=== PATIENT | male | born 1995 | race Caucasian/White ===

== ENCOUNTER → 2018-01-22 | Outpatient (CLI) | payer OTHER ==
[~2018-01-22] MED LIST: AMPH1TAB PO; NAPR-1169 PO; PANT40TA PO; RANI150T3 PO
--- NOTE | 2018-01-22 14:31 | DIAGNOSTIC IMAGING REPORT ---
CT OF THE ABDOMEN AND PELVIS WITH CONTRAST CLINICAL HISTORY: Left flank pain. COMPARISON STUDY: None. TECHNIQUE: Following IV administration of 92 mL of Optiray-320, axial images of the abdomen and pelvis were obtained from the lung bases to the proximal femurs. Images were reviewed in the axial, sagittal, and coronal planes. IV contrast was administered without complication. A dose lowering technique was utilized adhering to the principles of ALARA. CT DOSE: 266.36 mGy.cm FINDINGS: Lung bases are clear. The liver, spleen, adrenal glands, kidneys and pancreas are normal. There is no biliary or pancreatic ductal dilatation. There is no peripancreatic or pericholecystic infiltration. There is no hydronephrosis or hydroureter. No urinary calculi are identified. There is trace fluid within the pelvis, a nonspecific finding. There is no lymphadenopathy. There is no abscess. No suspicious osseous lesion is present. No groin hernia is identified. IMPRESSION: 1. Trace fluid within the pelvis, a nonspecific finding. 2. Otherwise, unremarkable CT of the abdomen or pelvis. No bowel obstruction. No groin hernia. No urinary calculus. Electronically signed by: Jordi Fontana M.D. 01/22/2018 2:30 PM Dictated Date/Time: 01/22/2018 2:18 PM
== END | disposition home or self-care (01) ==
LOC: C.CTS 13:52
PROVIDERS: ATTEND Physician Assistant
DX: R10.9 Unspecified abdominal pain (principal)

== ENCOUNTER 2018-01-25 04:33 | Emergency (ER) | payer OTHER ==
[~2018-01-25] VITALS: Ht 175.3 cm; Wt 60.0 kg
[2018-01-25 04:42] VITALS: TEMP 36.5; Ht 175.3 cm; Wt 60.0 kg
[2018-01-25] MEDS ORDERED: NAPR-1169 PO (05:02)
[2018-01-25] MEDS ORDERED: AMPH1TAB PO (05:02)
[2018-01-25] MEDS ORDERED: PANTOprazole SOD 40 MG TAB PO STA (05:16)
--- NOTE | 2018-01-25 05:17 | EMERGENCY ROOM VISIT NOTE ---
History Report prepared by Chad: Renée Mena Under the Supervision of: Dr. Zenaida Navarrete M.D. First contact with patient: 04:51 Chief Complaint: FLANK PAIN Stated Complaint: DISCOMFORT IN LEFT SIDE ABD History of Present Illness The patient is a 22 year old male who presents to the Emergency Room with complaints of intermittent left abdominal pain for one week. He states the pain is worsened when he is lying flat to go to bed. He describes the pain is mild while he is sitting. He has had this pain one week ago. He notes that he was seen at [facility] with [facility] at that time. He was told to come to [facility] to have a CT scan. He had the scan January 22, 2018. He notes that he was told there was fluid in his pelvis, though everything else was normal. He notes they took a urine sample. He reports taking anti-inflammatory medication for the pain. He notes the medication was initially helping, though the pain has worsened and the medication is no longer relieving. He denies any fevers, vomiting, or diarrhea. He notes that he drinks alcohol every three weeks. He notes that he does not drink much when he does consume alcohol. He denies any recent illness. He notes the last time he ate was at 2200 last night. He denies any back pain, urinary symptoms, or bloody stools. Source of History: patient Onset: one week ago Position: abdomen Symptom Intensity: mild Timing: intermittent Modifying Factors (Worsening): other (lying flat) Associated Symptoms: No fevers, No vomiting, No back pain, No diarrhea, No urinary symptoms Note: He denies any bloody stools. Review of Systems See HPI for pertinent positives & negatives. A total of 10 systems reviewed and were otherwise negative. Past Medical & Surgical Medical Problems: (1) No Known Active Medical Problems Family History Diabetes mellitus Social History Smoking Status: Never Smoker Smokeless Tobacco Use: No Alcohol Use: occasionally Drug Use: none Marital Status: single Housing Status: lives with roommate Occupation Status: [employer] student Current/Historical Medications Scheduled Pantoprazole (Protonix), 40 MG PO DAILY Ranitidine Hcl (Zantac), 150 MG PO BID Scheduled PRN Amphetamine-Dextroamphetamine 7.5MG (Adderall 7.5MG), 7.5 MG PO DAILY PRN for add Naproxen (Naprosyn), 500 MG PO BID PRN for Pain Allergies Coded Allergies: No Known Allergies (Unverified , 01/25/18) Physical Exam Vital Signs Date Time Temp Pulse Resp B/P (MAP) Pulse Ox O2 Delivery O2 Flow Rate FiO2 01/25/18 05:43 70 16 126/76 98 01/25/18 04:42 36.5 82 18 123/69 99 Room Air Physical Exam Vital signs reviewed. General: Well-appearing, in no significant distress. HEENT: No scleral icterus, PERRLA, neck supple. Atraumatic. Cardiovascular: Regular rate and rhythm, no extra sounds. Pulmonary: Clear to auscultation bilaterally, normal work of breathing. Abdomen: Soft, nontender, nondistended, positive bowel sounds. Musculoskeletal: Atraumatic, no peripheral edema. Neurologic: Patient awake alert and oriented x 3 Skin: Warm, dry, no rash Medical Decision & Procedures Medications Administered Medications (Trade) Dose Ordered Sig/Ethan Route Start Time Stop Time Status Last Admin Dose Admin Pantoprazole Sodium (Protonix Tab) 40 mg NOW STAT PO 01/25/18 05:16 01/25/18 05:17 DC 01/25/18 05:41 40 MG ED Course 0504: Past medical records reviewed. The patient was evaluated in room B10. A complete history and physical examination was performed. I discussed the results and treatment plan with the patient. I answered all pertaining questions that he had. He expressed understanding and verbalized agreement. The patient will be discharged home. 0516: Ordered Protonix 40 mg PO Medical Decision Differential diagnosis: Etiologies such as appendicitis, diverticulitis, PUD, biliary pathology, UTI, pancreatitis, obstruction, mesenteric ischemia, aortic pathology, infections, inflammatory bowel disease, renal colic, as well as others were entertained. Pt was evaluated and appeared to be in no distress. PE is unrevealing. CT scan performed earlier this week was reviewed. Pt is felt to likely be suffering from gastritis or early PUD. He was advised to stop the anti- inflammatories and begin protonix 40 mg po. He was advised to f/u with [facility] and consider EGD with GI is symptoms continue. He will return to the ED for worsening of symptoms or any medical concerns. Medication Reconcilliation Current Medication List: was personally reviewed by me Blood Pressure Screening Patient's blood pressure: Normal blood pressure Impression Primary Impression: Gastritis Scribe Attestation The scribe's documentation has been prepared under my direction and personally reviewed by me in its entirety. I confirm that the note above accurately reflects all work, treatment, procedures, and medical decision making performed by me. Departure Information Dispostion Home / Self-Care Prescriptions Pantoprazole (Protonix) 40 Mg Tab 40 MG PO DAILY, #30 TAB Prov: Zenaida Navarrete M.D. 01/25/18 Ranitidine Hcl (ZANTAC) 150 Mg Tab 150 MG PO BID, #60 TAB Prov: Zenaida Navarrete M.D. 01/25/18 Referrals [facility] HOME CARE DOCUMENTATION FORM, IMPORTANT VISIT INFORMATION Patient Instructions My [facility] Additional Instructions Diagnosis: Gastritis, possible ulcer Protonix 40 mg daily for 2 weeks. Zantac 150 mg twice daily as needed for gastritis. Stop anti-inflammatory medications. Return to the ED for worsening of symptoms or any medical concerns. Follow up with S this week for reevaluation.
[2018-01-25] MEDS ORDERED: RANI150T3 PO (05:21)
[2018-01-25] MEDS ORDERED: PANT40TA PO (05:21)
[2018-01-25 05:43] VITALS: BP 126/76; PULSE 70; O2SAT 98
== END 2018-01-25 05:44 | disposition home or self-care (01) ==
LOC: C.EDB 04:34
DX: K29.70 Gastritis, unspecified, without bleeding (principal); Z83.3 Family history of diabetes mellitus; Z79.899 Other long term (current) drug therapy